=== PATIENT | female | born 1985 | race Caucasian/White ===

== ENCOUNTER 2022-09-25 10:02 | Emergency (ER) | payer OTHER ==
[~2022-09-25] VITALS: Ht 162.6 cm; Wt 75.0 kg
[2022-09-25] MEDS ORDERED: ZOLO100T PO (10:17)
[2022-09-25] MEDS ORDERED: WELLTAB40 PO (10:17)
[2022-09-25 10:18] VITALS: BP 148/97
== END 2022-09-25 13:26 | disposition home or self-care (01) ==
LOC: M ED 10:02
DX: S66.211A Strain of extensor muscle, fascia and tendon of right thumb at wrist and hand level, initial encounter (principal); W23.0XXA Caught, crushed, jammed, or pinched between moving objects, initial encounter; I10 Essential (primary) hypertension; F41.9 Anxiety disorder, unspecified; F32.A Depression, unspecified; F17.200 Nicotine dependence, unspecified, uncomplicated; F10.10 Alcohol abuse, uncomplicated; Z88.8 Allergy status to other drugs, medicaments and biological substances; Z79.899 Other long term (current) drug therapy